=== PATIENT | female | born 2000 | race Two or more races ===

== ENCOUNTER 2023-02-13 22:45 | Emergency (ER) | payer OTHER ==
[~2023-02-13] VITALS: Ht 160 cm; Wt 74.4 kg
[2023-02-14 05:13] LABS: HEMATOCRIT 28.8 % (36.0-45.00); HEMOGLOBIN 9.7 g/dL (12.0-15.00); MEAN CELL VOLUME 81.9 fL (80.00-100.00); MEAN CORPUSCULAR HEMOGLOBIN 27.6 pg (27.00-32.0); MEAN CORPUSCULAR HGB CONC 33.8 g/dl (32.0-36.0); PLATELET COUNT 307 K/uL (150-450); RED BLOOD COUNT 3.52 M/uL (4.00-6.00); RED CELL DISTRIBUTION WIDTH 13.6 % (11.5-14.5)
[2023-02-14 05:28] LABS: CALCIUM 8.1 mg/dL (8.5-10.1); CREATININE SERUM 0.52 mg/dL (0.55-1.02); GFR 144.87; POTASSIUM 3.86 mEq/L (3.5-5.1)
[2023-02-14 06:29] LABS: URINE APPEARANCE Cloudy; URINE BILIRRUBIN Negative (NEGATIVE); URINE BLOOD Negative; URINE COLOR Yellow; URINE GLUCOSE Negative (NEGATIVE); URINE LEUKOCYTE Large; URINE NITRATE Negative; URINE PROTEIN Trace (NEGATIVE)
[2023-02-14 06:32] LABS: URINE RBC 4.5 uL (0.0-20.8); URINE WBC 626.3 uL (0.0-23.2)
[2023-02-14 07:13] LABS: URINE CRYSTALS FEW /HPF; URINE EPITHELIAL CELLS > 201.7 uL (0.0-38.8)
== END 2023-02-14 12:54 | disposition home or self-care (01) ==
LOC: ER
DX: R53.81 Other malaise (principal); Z20.822 Contact with and (suspected) exposure to COVID-19; O99.340 Other mental disorders complicating pregnancy, unspecified trimester; Z3A.20 20 weeks gestation of pregnancy

== ENCOUNTER → 2023-02-13 | Emergency (ER) | payer OTHER ==
[~2023-02-13] VITALS: Ht 167.6 cm; Wt 68.9 kg
== END | disposition home or self-care (01) ==
LOC: ER 18:06
DX: O9A.212 Injury, poisoning and certain other consequences of external causes complicating pregnancy, second trimester (principal); Z3A.20 20 weeks gestation of pregnancy

== ENCOUNTER 2023-03-14 22:42 | Emergency (ER) | payer OTHER ==
[~2023-03-14] VITALS: Ht 170.2 cm; Wt 82.6 kg
[2023-03-15 00:48] LABS: HEMATOCRIT 26.1 % (36.0-45.00); MEAN CELL VOLUME 78.9 fL (80.00-100.00); MEAN CORPUSCULAR HGB CONC 33.7 g/dl (32.0-36.0); PLATELET COUNT 290 K/uL (150-450); RED BLOOD COUNT 3.31 M/uL (4.00-6.00); RED CELL DISTRIBUTION WIDTH 13.7 % (11.5-14.5)
[2023-03-15 00:49] LABS: MEAN CORPUSCULAR HEMOGLOBIN 26.5 pg (27.00-32.0)
[2023-03-15 00:50] LABS: HEMOGLOBIN 8.8 g/dL (12.0-15.00)
[2023-03-15 01:05] LABS: PH,URINE 6.5 (5.0-8.0); URINE APPEARANCE Cloudy; URINE BILIRRUBIN Negative (NEGATIVE); URINE BLOOD Negative; URINE COLOR Yellow; URINE GLUCOSE Negative (NEGATIVE); URINE LEUKOCYTE Large; URINE NITRATE Negative; URINE PROTEIN Trace (NEGATIVE)
[2023-03-15 01:06] LABS: URINE EPITHELIAL CELLS 150.4 uL (0.0-38.8); URINE RBC 21.8 uL (0.0-20.8); URINE WBC 373.5 uL (0.0-23.2)
[2023-03-15 01:21] LABS: CALCIUM 8.7 mg/dL (8.5-10.1); CREATININE SERUM 0.6 mg/dL (0.55-1.02); GFR 122.82; POTASSIUM 3.93 mEq/L (3.5-5.1)
[2023-03-15 01:30] LABS: URINE CRYSTALS MODERATE /HPF; URINE YEAST MODERATE /hpf
[2023-03-15] MEDS ORDERED: CEPHALEXIN500 MG PO (04:44)
[2023-03-15] MEDS ORDERED: MONISTAT 315 GM VAG (04:44)
== END 2023-03-15 05:00 ==
LOC: ER 22:42
PROVIDERS: General Practice
DX: O98.812 Other maternal infectious and parasitic diseases complicating pregnancy, second trimester (principal); Z3A.23 23 weeks gestation of pregnancy; Z20.822 Contact with and (suspected) exposure to COVID-19

== ENCOUNTER 2024-12-02 00:20 | Emergency (ER) | payer OTHER ==
[~2024-12-02] VITALS: Ht 160 cm; Wt 108.9 kg
[~2024-12-02 00:20] MED LIST: CEPHALEXIN500 MG PO; MONISTAT 315 GM VAG; PRENA1 TRUE CO1 EACH PO
[2024-12-02] MEDS ORDERED: DEPAKOTE ER250 MG PO (00:30)
[2024-12-02] MEDS ORDERED: ACETAMINOPHEN 500 MG GEL..CAP PO STA (00:46)
[2024-12-02] MEDS ORDERED: GUAIFENESIN 200 MG/10 ML BLIST.PACK PO STA (00:46)
[2024-12-02 01:20] LABS: BASO % 0.6 % (0.1-1.2); EOS # 0.21 (0.04-0.54); EOS % 3.0 % (0.7-7.0); LYMPH # 2.57 (1.18-3.74); LYMPH % 37.0 % (19.3-53.1); MEAN PLATELET VOLUME 9.90 fl (9.4-12.4); MONO # 0.82 (0.24-0.82); MONO % 11.8 % (4.7-12.5); NEUT # 3.30 (1.56-6.13); NEUT % 47.5 % (34.0-71.1); RED CELL DISTRIBUTION WIDTH 14.5 % (11.6-14.4)
[2024-12-02 01:57] LABS: COVID-19 AG NEGATIVE (NEGATIVE)
[2024-12-02] MEDS ORDERED: QUETIAPINE FUMARATE 100 MG TABLET PO STA (02:12)
== END 2024-12-02 13:41 | disposition home or self-care (01) ==
LOC: ER 00:20
PROVIDERS: General Practice
DX: R05.9 Cough, unspecified (principal); Z59.00 Homelessness unspecified; R53.81 Other malaise; Z20.822 Contact with and (suspected) exposure to COVID-19